=== PATIENT | male | born 1990 | race African-American/Black ===

== ENCOUNTER 2022-07-30 12:24 | Emergency (ER) | payer MEDICAID ==
[~2022-07-30] VITALS: Ht 190.5 cm; Wt 127.0 kg
[2022-07-30] MEDS ORDERED: PREDNISONE 20MG TABLET PO STA (16:01)
[2022-07-30] MEDS ORDERED: IPRATROPIUM BROMIDE (0.02%) 0.5MG/2.5ML NEB HHN STA (16:01)
[2022-07-30] MEDS ORDERED: ALBUTEROL (0.083%) 2.5MG/3ML NEB HHN STA (16:01)
[2022-07-30] MEDS ORDERED: ALBU6.7H3 INH (17:48)
[2022-07-30 18:50] VITALS: BP 127/77
== END 2022-07-30 19:29 | disposition home or self-care (01) ==
LOC: ER 12:24
DX: J45.901 Unspecified asthma with (acute) exacerbation (principal); I10 Essential (primary) hypertension; Z20.822 Contact with and (suspected) exposure to COVID-19
CPT/HCPCS: 71045; 87426; 87804; 93005; 94640; 99285; C9803; J7512; Z7610